=== PATIENT | female | born 1930 | race Caucasian/White ===

== ENCOUNTER 2019-09-05 22:41 | Inpatient (IN) ==
[2019-09-05] MEDS ORDERED: Pantoprazole 40 MG VIAL IVP ONE (22:51)
[2019-09-05] MEDS ORDERED: Ondansetron 4 MG/2 ML VIAL IVP ONE (22:51)
[2019-09-05] MEDS ORDERED: 0.9 % Sodium Chloride 1,000 ML IVC ONE (22:51)
[2019-09-05 23:19] LABS: Prothrombin Time 23.1 Seconds (9.4-12.1)
[2019-09-05 23:21] LABS: Activated Partial Thrombo Time 25.6 Seconds (26.0-36.0)
[2019-09-05 23:36] LABS: BUN/Creatinine Ratio 19 (6-26); Blood Urea Nitrogen 22 mg/dL (8-23); Calcium 7.5 mg/dL (8.6-10.3); Carbon Dioxide 12 mEq/L (23-29); Chloride 111 mEq/L (98-107); Glucose 137 mg/dL (70-105); Osmolality,Calculated 291 (280-300); Potassium 5.9 mEq/L (3.5-5.1); Sodium 138 mEq/L (136-145); eGFR For African Americans 52 (> 60); eGFR For Non-African Americans 43 (> 60)
[2019-09-05 23:40] LABS: Troponin I < 0.03 ng/mL (< 0.04)
[2019-09-05 23:55] LABS: Albumin 2.6 g/dL (3.5-5.7); Bilirubin,Direct 0.2 mg/dL (0.0-0.2); Bilirubin,Indirect 0.6 mg/dL (0.0-1.0); Bilirubin,Total 0.8 mg/dL (0.3-1.0); Globulin 2.7 g/dL (2.4-3.5); Total Protein 5.3 g/dL (6.4-8.9)
[2019-09-06 02:18] LABS: Immature Granulocytes % 0.5 % (0-4); Lymphocytes # 2.1 K/mcL (0.6-4.6); Lymphocytes % 25.7 %; Mean Corpuscular Hemoglobin 17.6 pg (28.0-33.3); Mean Corpuscular Volume 70.6 fL (83.0-100.0); Monocytes # 0.5 K/mcL (0.0-1.3); Monocytes % 6.5 %; Neutrophils # 5.6 K/mcL (1.6-8.9); Red Blood Count 2.04 M/mcL (3.82-4.97); Red Cell Distribution Width 20.1 % (11.5-14.5); Segmented Neutrophils % 67.3 %; White Blood Count 8.3 K/mcL (4.3-11.1)
[2019-09-06 02:22] LABS: Hemoglobin 3.6 g/dL (11.5-15.4)
[2019-09-06 02:23] LABS: Hematocrit 14.4 % (35.3-44.9); Platelet Count 86 K/mcL (140-400)
[2019-09-06 02:42] LABS: Anisocytosis 2+ (Not Present); Hypochromasia Present (Not Present)
[2019-09-06] MEDS ORDERED: Octreotide 50 MCG/ML INJ IVP ONE (02:42)
[2019-09-06] MEDS ORDERED: cefTRIAXone 2,000 MG in Water for inj. (sterile) 20 ML IVP ONE (02:42)
[2019-09-06 02:43] LABS: Ovalocytes 1+ (Not Present); Platelet Estimate Slight Decrease (Normal); Poikilocytosis 2+ (Not Present)
[2019-09-06] MEDS ORDERED: Calcium Gluconate 1gm/50mL 1 GM/50 ML BAG IVPB ONE (02:44)
[2019-09-06] MEDS ORDERED: 0.9 % Sodium Chloride 250 ML ONE ×2 (03:32→04:12)
[2019-09-06 03:55] LABS: D-Dimer 809 ng/mLFEU (0-500); Fibrinogen 80 mg/dL (169-393)
[2019-09-06] MEDS: Pantoprazole 40 MG in 0.9 % Sodium Chloride Mini Bag 100 ML IVC SCH ×5 (04:17→22:38)
[2019-09-06] MEDS: Octreotide 400 MCG in 0.9 % Sodium Chloride 100 ML IVC SCH ×2 (04:18→20:13)
[2019-09-06] MEDS ORDERED: Isovue-370 500 ML BOTTLE IVP ONE (04:19)
[2019-09-06] MEDS ORDERED: 0.9 % Sodium Chloride 250 ML IVC SCH (04:30)
[2019-09-06] MEDS ORDERED: 0.9 % Sodium Chloride 1,000 ML IVC ONE (04:46)
[2019-09-06] MEDS ORDERED: Naloxone 0.4 MG/ML INJ IVP PRN (06:17)
[2019-09-06] MEDS ORDERED: D5% in Water 1,000 ML IVC PRN (06:25)
[2019-09-06] MEDS ORDERED: Dextrose Gel 15 GM/37.5 ML TUBE PO PRN ×2 (06:25)
[2019-09-06] MEDS ORDERED: *HR* Dextrose 50 % in Water (Syg) 50 ML SYRINGE IVP PRN (06:25)
[2019-09-06 08:28] LABS: INR 1.9; Prothrombin Time 21.1 Seconds (9.4-12.1)
[2019-09-06 08:29] LABS: Hematocrit 16.2 % (35.3-44.9)
[2019-09-06] MEDS: Insulin LISPRO 300 UNITS/3 ML VIAL SQ SCH ×3 (08:36→18:17)
[2019-09-06 08:38] LABS: Hemoglobin 4.5 g/dL (11.5-15.4)
[2019-09-06] MEDS ORDERED: Calcium Chloride 1,000 MG in 0.9 % Sodium Chloride 100 ML IVPB ONE (08:41)
[2019-09-06] MEDS ORDERED: Albumin Human 5% 0 GM/0 ML IV.SOLN ONE (08:44)
[2019-09-06 08:45] LABS: Alanine Aminotransferase 26 Units/L (7-52); Albumin/Globulin Ratio 1.2 (1.1-2.2); Alkaline Phosphatase 45 Units/L (34-104); Aspartate Amino Transferase 55 Units/L (13-39); BUN/Creatinine Ratio 22 (6-26); Blood Urea Nitrogen 26 mg/dL (8-23); Carbon Dioxide 15 mEq/L (23-29); Chloride 110 mEq/L (98-107); Globulin 2.6 g/dL (2.4-3.5); Glucose 131 mg/dL (70-105); Magnesium 1.6 mg/dL (1.6-2.6); Osmolality,Calculated 297 (280-300); Phosphorous 3.6 mg/dL (2.7-4.5); Potassium 5.4 mEq/L (3.5-5.1); Sodium 140 mEq/L (136-145); Total Protein 5.6 g/dL (6.4-8.9); eGFR For African Americans 53 (> 60); eGFR For Non-African Americans 44 (> 60)
[2019-09-06 08:52] LABS: Troponin I < 0.03 ng/mL (< 0.04)
[2019-09-06] MEDS ORDERED: Lacri-Lube 3.5 GM TUBE ONE (09:29)
[2019-09-06] MEDS ORDERED: Lidocaine -MPF 4% 5 ML AMPUL ONE (09:50)
[2019-09-06] MEDS ORDERED: *HR* Etomidate 40 MG/20 ML VIAL IVP ONE (09:50)
[2019-09-06] MEDS ORDERED: *HR* Succinylcholine 200 MG/10 ML VIAL IVP ONE (09:50)
[2019-09-06] MEDS ORDERED: Furosemide 40 MG TABLET PO SCH (10:45)
[2019-09-06] MEDS: Albumin 25% 25gram/100mL 25 GM/100 ML IV.SOLN IVPB SCH ×3 (11:10→17:09)
[2019-09-06] MEDS ORDERED: Furosemide 20 MG/2 ML VIAL IVP ONE (12:13)
[2019-09-06 13:25] LABS: Hematocrit 21.7 % (35.3-44.9)
[2019-09-06 13:26] LABS: Hemoglobin 6.4 g/dL (11.5-15.4)
[2019-09-06 13:32] LABS: INR 1.8; Prothrombin Time 20.9 Seconds (9.4-12.1)
[2019-09-06 13:34] LABS: Activated Partial Thrombo Time 29.2 Seconds (26.0-36.0)
[2019-09-06 13:55] LABS: Hepatitis B Surface Antigen Nonreactive (Nonreactive)
[2019-09-06 14:22] LABS: Hepatitis C Virus Antibody Nonreactive (Nonreactive)
[2019-09-06 14:24] LABS: Hepatitis B Core IgM Nonreactive (Nonreactive)
[2019-09-06 14:26] LABS: Hepatitis A Antibody IgM Nonreactive (Nonreactive)
[2019-09-06] MEDS ORDERED: Chloraseptic Spray 177 ML BOTTLE MM PRN (14:39)
[2019-09-06] MEDS: Ondansetron 4 MG/2 ML VIAL IVP SCH ×2 (16:46→23:17)
[2019-09-06 17:25] LABS: Eosinophils % 0.3 %; Hematocrit 18.1 % (35.3-44.9); Immature Granulocytes % 0.3 % (0-4); Immature Platelets 6.3 % (1.1-6.1); Lymphocytes # 0.5 K/mcL (0.6-4.6); Lymphocytes % 15.2 %; Mean Corpuscular HGB Conc 29.8 g/dL (31.6-35.5); Mean Corpuscular Hemoglobin 22.5 pg (28.0-33.3); Mean Corpuscular Volume 75.4 fL (83.0-100.0); Mean Platelet Volume 10.4 fL (9.4-12.4); Monocytes # 0.1 K/mcL (0.0-1.3); Monocytes % 2.8 %; Neutrophils # 2.6 K/mcL (1.6-8.9); Nucleated Red Blood Cells 0.9 /100 WBC (0); Red Cell Distribution Width 19.5 % (11.5-14.5); Segmented Neutrophils % 81.4 %; White Blood Count 3.2 K/mcL (4.3-11.1)
[2019-09-06 17:28] LABS: Platelet Count 45 K/mcL (140-400)
[2019-09-06 17:33] LABS: Hemoglobin 5.4 g/dL (11.5-15.4)
[2019-09-06 17:57] LABS: Hypochromasia Present (Not Present); Platelet Estimate Decreased (Normal)
[2019-09-06 17:58] LABS: Anisocytosis 1+ (Not Present); Microcytosis Present (Not Present)
[2019-09-06] MEDS ORDERED: Acetaminophen 325 MG TABLET PO PRN (18:42)
[2019-09-06 22:15] LABS: Calcium 9.1 mg/dL (8.6-10.3); Magnesium 1.5 mg/dL (1.6-2.6)
[2019-09-06 22:26] LABS: Troponin I 0.2 ng/mL (< 0.04)
[2019-09-06 23:53] LABS: Basophils % 0.3 %; Immature Granulocytes % 0.5 % (0-4); Monocytes % 2.8 %
[2019-09-06 23:55] LABS: Hematocrit 24.8 % (35.3-44.9); Hemoglobin 7.7 g/dL (11.5-15.4); Immature Platelets 7.3 % (1.1-6.1); Lymphocytes # 0.4 K/mcL (0.6-4.6); Lymphocytes % 9.8 %; Mean Corpuscular Hemoglobin 24.6 pg (28.0-33.3); Mean Corpuscular Volume 79.2 fL (83.0-100.0); Monocytes # 0.1 K/mcL (0.0-1.3); Neutrophils # 3.4 K/mcL (1.6-8.9); Nucleated Red Blood Cells 0.5 /100 WBC (0); Platelet Count 39 K/mcL (140-400); Red Blood Count 3.13 M/mcL (3.82-4.97); Red Cell Distribution Width 20.1 % (11.5-14.5); Segmented Neutrophils % 86.6 %; White Blood Count 3.9 K/mcL (4.3-11.1)
[2019-09-07 00:52] LABS: VBG Ionized Calcium 1.18 mmol/L (1.15-1.35)
[2019-09-07 00:56] LABS: INR 1.8
[2019-09-07 00:57] LABS: Hemoglobin 7.9 g/dL (11.5-15.4)
[2019-09-07 00:59] LABS: Activated Partial Thrombo Time 27.7 Seconds (26.0-36.0); Hematocrit 25.8 % (35.3-44.9)
[2019-09-07] MEDS: Insulin LISPRO 300 UNITS/3 ML VIAL SQ SCH ×5 (01:16→20:30)
[2019-09-07] MEDS: Pantoprazole 40 MG in 0.9 % Sodium Chloride Mini Bag 100 ML IVC SCH ×4 (03:55→20:33)
[2019-09-07] MEDS ORDERED: cefTRIAXone 2,000 MG in Water for inj. (sterile) 20 ML IVP SCH (04:00)
[2019-09-07 05:42] LABS: Lymphocytes % 15.7 %
[2019-09-07 05:44] LABS: Immature Platelets 7.6 % (1.1-6.1)
[2019-09-07 05:47] LABS: Basophils % 0.3 %; Hematocrit 28.3 % (35.3-44.9); Hemoglobin 8.9 g/dL (11.5-15.4); Immature Granulocytes % 0.3 % (0-4); Lymphocytes # 0.6 K/mcL (0.6-4.6); Mean Corpuscular HGB Conc 31.4 g/dL (31.6-35.5); Mean Corpuscular Hemoglobin 25.2 pg (28.0-33.3); Mean Corpuscular Volume 80.2 fL (83.0-100.0); Monocytes # 0.2 K/mcL (0.0-1.3); Monocytes % 5.7 %; Nucleated Red Blood Cells 0.5 /100 WBC (0); Platelet Count 34 K/mcL (140-400); Red Blood Count 3.53 M/mcL (3.82-4.97); Red Cell Distribution Width 19.8 % (11.5-14.5); White Blood Count 3.9 K/mcL (4.3-11.1)
[2019-09-07] MEDS ORDERED: Furosemide 20 MG/2 ML VIAL IVP ONE (06:58)
[2019-09-07 07:12] LABS: Albumin 3.6 g/dL (3.5-5.7); Albumin/Globulin Ratio 1.7 (1.1-2.2); Calcium 8.8 mg/dL (8.6-10.3); Globulin 2.1 g/dL (2.4-3.5); Magnesium 1.9 mg/dL (1.6-2.6); Phosphorous 3.5 mg/dL (2.7-4.5); Potassium 4.7 mEq/L (3.5-5.1); Total Protein 5.7 g/dL (6.4-8.9)
[2019-09-07] MEDS: Ondansetron 4 MG/2 ML VIAL IVP SCH ×2 (07:24→17:24)
[2019-09-07] MEDS: Octreotide 400 MCG in 0.9 % Sodium Chloride 100 ML IVC SCH ×2 (11:50→14:19)
[2019-09-07] MEDS ORDERED: Chloraseptic Spray 177 ML BOTTLE MM PRN (13:34)
[2019-09-07] MEDS ORDERED: Naloxone 0.4 MG/ML INJ IVP PRN (13:34)
[2019-09-07] MEDS ORDERED: D5% in Water 1,000 ML IVC PRN (13:34)
[2019-09-07] MEDS ORDERED: Dextrose Gel 15 GM/37.5 ML TUBE PO PRN ×2 (13:34)
[2019-09-07] MEDS ORDERED: *HR* Dextrose 50 % in Water (Syg) 50 ML SYRINGE IVP PRN (13:34)
[2019-09-07] MEDS ORDERED: Acetaminophen 325 MG TABLET PO PRN (13:34)
[2019-09-07 17:27] LABS: Hematocrit 27.5 % (35.3-44.9); Hemoglobin 8.6 g/dL (11.5-15.4); Mean Corpuscular Volume 79.9 fL (83.0-100.0); Red Blood Count 3.44 M/mcL (3.82-4.97); White Blood Count 3.4 K/mcL (4.3-11.1)
[2019-09-07 17:28] LABS: Basophils % 0.3 %; Eosinophils % 0.6 %; Lymphocytes # 0.7 K/mcL (0.6-4.6); Lymphocytes % 20.1 %; Mean Corpuscular HGB Conc 31.3 g/dL (31.6-35.5); Monocytes # 0.3 K/mcL (0.0-1.3); Monocytes % 9.6 %; Neutrophils # 2.4 K/mcL (1.6-8.9); Platelet Count 50 K/mcL (140-400); Red Cell Distribution Width 20.1 % (11.5-14.5); Segmented Neutrophils % 69.1 %
[2019-09-07 17:29] LABS: Immature Granulocytes % 0.3 % (0-4)
[2019-09-07 17:31] LABS: Anisocytosis 2+ (Not Present); Hypochromasia Present (Not Present); Large Platelets Present (Not Present); Microcytosis Present (Not Present); Platelet Estimate Decreased (Normal); Poikilocytosis 1+ (Not Present)
[2019-09-08] MEDS: Ondansetron 4 MG/2 ML VIAL IVP SCH ×4 (00:25→23:28)
[2019-09-08] MEDS: Pantoprazole 40 MG in 0.9 % Sodium Chloride Mini Bag 100 ML IVC SCH ×5 (01:38→23:27)
[2019-09-08] MEDS: cefTRIAXone 2,000 MG in Water for inj. (sterile) 20 ML IVP SCH (04:20)
[2019-09-08 04:50] LABS: Basophils % 0.3 %; Immature Granulocytes % 0.3 % (0-4)
[2019-09-08 04:50] LABS: VBG Ionized Calcium 1.17 mmol/L (1.15-1.35)
[2019-09-08 04:51] LABS: Hematocrit 27.5 % (35.3-44.9); Hemoglobin 8.7 g/dL (11.5-15.4); Immature Platelets 7.5 % (1.1-6.1); Lymphocytes # 0.8 K/mcL (0.6-4.6); Mean Corpuscular HGB Conc 31.6 g/dL (31.6-35.5); Mean Corpuscular Hemoglobin 25.7 pg (28.0-33.3); Mean Corpuscular Volume 81.1 fL (83.0-100.0); Monocytes # 0.3 K/mcL (0.0-1.3); Monocytes % 10.6 %; Neutrophils # 1.9 K/mcL (1.6-8.9); Red Blood Count 3.39 M/mcL (3.82-4.97); Red Cell Distribution Width 20.6 % (11.5-14.5); Segmented Neutrophils % 61.8 %; White Blood Count 3.1 K/mcL (4.3-11.1)
[2019-09-08 04:53] LABS: INR 1.6; Prothrombin Time 17.9 Seconds (9.4-12.1)
[2019-09-08 04:56] LABS: Activated Partial Thrombo Time 26.4 Seconds (26.0-36.0)
[2019-09-08 05:09] LABS: Albumin 3.5 g/dL (3.5-5.7); Albumin/Globulin Ratio 1.5 (1.1-2.2); Bilirubin,Total 1.1 mg/dL (0.3-1.0); Calcium 8.7 mg/dL (8.6-10.3); Globulin 2.3 g/dL (2.4-3.5); Magnesium 1.7 mg/dL (1.6-2.6); Phosphorous 2.6 mg/dL (2.7-4.5); Potassium 3.8 mEq/L (3.5-5.1); Total Protein 5.8 g/dL (6.4-8.9)
[2019-09-08 05:25] LABS: Platelet Count 54 K/mcL (140-400)
[2019-09-08 05:46] LABS: Anisocytosis 1+ (Not Present); Hypochromasia Present (Not Present)
[2019-09-08 05:47] LABS: Microcytosis Present (Not Present); Platelet Estimate Decreased (Normal)
[2019-09-08] MEDS: Insulin LISPRO 300 UNITS/3 ML VIAL SQ SCH ×3 (07:47→16:31)
[2019-09-08] MEDS: Letrozole 2.5 MG TABLET PO SCH (07:48)
[2019-09-08] MEDS: Spironolactone 25 MG TABLET PO SCH (07:48)
[2019-09-08] MEDS: Furosemide 20 MG TABLET PO SCH (07:48)
[2019-09-08 08:12] LABS: F-Actin (sm muscle) Ab IgG 6 Units (0-19)
[2019-09-08 08:22] LABS: AFP Tumor Marker Non-Pregnant 3 ng/mL (0-9)
[2019-09-08] MEDS ORDERED: Albumin 25% 25gram/100mL 25 GM/100 ML IV.SOLN IVPB SCH (09:00)
[2019-09-08] MEDS ORDERED: Albumin 25% 25gram/100mL 25 GM/100 ML IV.SOLN IVPB ONE (10:20)
[2019-09-08 18:13] LABS: Basophils % 0.3 %; Eosinophils % 0.7 %; Hematocrit 29.7 % (35.3-44.9); Hemoglobin 9.2 g/dL (11.5-15.4); Immature Platelets 7.3 % (1.1-6.1); Lymphocytes # 0.8 K/mcL (0.6-4.6); Lymphocytes % 25.2 %; Mean Corpuscular Volume 80.7 fL (83.0-100.0); Monocytes # 0.4 K/mcL (0.0-1.3); Neutrophils # 1.9 K/mcL (1.6-8.9); Red Blood Count 3.68 M/mcL (3.82-4.97); Red Cell Distribution Width 20.5 % (11.5-14.5); Segmented Neutrophils % 61.8 %
[2019-09-08 18:21] LABS: Platelet Count 49 K/mcL (140-400)
[2019-09-08] MEDS: Octreotide 400 MCG in 0.9 % Sodium Chloride 100 ML IVC SCH (18:54)
[2019-09-09] MEDS: Insulin LISPRO 300 UNITS/3 ML VIAL SQ SCH ×4 (00:04→16:37)
[2019-09-09] MEDS: cefTRIAXone 2,000 MG in Water for inj. (sterile) 20 ML IVP SCH (03:31)
[2019-09-09 04:10] LABS: Basophils % 0.4 %; Immature Granulocytes % 0.4 % (0-4)
[2019-09-09 04:12] LABS: Eosinophils % 1.2 %; Hematocrit 28.9 % (35.3-44.9); Hemoglobin 8.8 g/dL (11.5-15.4); Immature Platelets 7.5 % (1.1-6.1); Lymphocytes # 0.7 K/mcL (0.6-4.6); Lymphocytes % 29.5 %; Mean Corpuscular HGB Conc 30.4 g/dL (31.6-35.5); Mean Corpuscular Hemoglobin 24.8 pg (28.0-33.3); Mean Corpuscular Volume 81.4 fL (83.0-100.0); Monocytes % 10.2 %; Neutrophils # 1.4 K/mcL (1.6-8.9); Red Blood Count 3.55 M/mcL (3.82-4.97); Red Cell Distribution Width 20.6 % (11.5-14.5); Segmented Neutrophils % 58.3 %; White Blood Count 2.4 K/mcL (4.3-11.1)
[2019-09-09 04:17] LABS: Monocytes # 0.2 K/mcL (0.0-1.3); Platelet Count 50 K/mcL (140-400)
[2019-09-09 04:18] LABS: Calcium 8.5 mg/dL (8.6-10.3); Magnesium 1.5 mg/dL (1.6-2.6); Phosphorous 2.9 mg/dL (2.7-4.5); Potassium 3.5 mEq/L (3.5-5.1)
[2019-09-09] MEDS: Pantoprazole 40 MG in 0.9 % Sodium Chloride Mini Bag 100 ML IVC SCH ×2 (04:20→10:30)
[2019-09-09 06:49] LABS: ANA IgG by ELISA NONE DETECTED (None Detected); Serine Protease-3 Antibody 0 AU/mL (0-19)
[2019-09-09] MEDS ORDERED: Magnesium Sulfate 1 GM/102 ML PIGGYBACK IVPB ONE (07:35)
[2019-09-09] MEDS: Furosemide 20 MG TABLET PO SCH (08:21)
[2019-09-09] MEDS: Spironolactone 25 MG TABLET PO SCH (08:21)
[2019-09-09] MEDS: Ondansetron 4 MG/2 ML VIAL IVP SCH (08:21)
[2019-09-09] MEDS: Letrozole 2.5 MG TABLET PO SCH (08:21)
[2019-09-09] MEDS ORDERED: Albumin 25% 25gram/100mL 25 GM/100 ML IV.SOLN IVPB ONE (09:16)
[2019-09-09] MEDS ORDERED: Ondansetron 4 MG/2 ML VIAL IVP PRN (09:17)
[2019-09-09] MEDS: Octreotide 400 MCG in 0.9 % Sodium Chloride 100 ML IVC SCH (11:16)
[2019-09-09] MEDS: Pantoprazole 40 MG VIAL IVP SCH (16:37)
[2019-09-10] MEDS: Octreotide 400 MCG in 0.9 % Sodium Chloride 100 ML IVC SCH (03:07)
[2019-09-10] MEDS: cefTRIAXone 2,000 MG in Water for inj. (sterile) 20 ML IVP SCH (03:31)
[2019-09-10 03:39] LABS: Hemoglobin 8.4 g/dL (11.5-15.4); Immature Granulocytes % 0.5 % (0-4); Mean Corpuscular Hemoglobin 24.5 pg (28.0-33.3); Red Blood Count 3.43 M/mcL (3.82-4.97)
[2019-09-10 03:40] LABS: Basophils % 0.5 %
[2019-09-10 03:41] LABS: Eosinophils # 0.1 K/mcL (0.0-0.6); Eosinophils % 3.2 %; Hematocrit 28.3 % (35.3-44.9); Immature Platelets 8.2 % (1.1-6.1); Lymphocytes # 0.7 K/mcL (0.6-4.6); Mean Corpuscular HGB Conc 29.7 g/dL (31.6-35.5); Mean Corpuscular Volume 82.5 fL (83.0-100.0); Monocytes # 0.2 K/mcL (0.0-1.3); Monocytes % 9.5 %; Neutrophils # 0.9 K/mcL (1.6-8.9); Red Cell Distribution Width 21.1 % (11.5-14.5); Segmented Neutrophils % 49.3 %; White Blood Count 1.9 K/mcL (4.3-11.1)
[2019-09-10 03:47] LABS: Platelet Count 48 K/mcL (140-400)
[2019-09-10 03:59] LABS: BUN/Creatinine Ratio 28 (6-26); Blood Urea Nitrogen 28 mg/dL (8-23); Carbon Dioxide 28 mEq/L (23-29); Chloride 105 mEq/L (98-107); Potassium 3.4 mEq/L (3.5-5.1); Sodium 142 mEq/L (136-145); eGFR For African Americans > 60 (> 60)
[2019-09-10 04:00] LABS: Calcium 8.3 mg/dL (8.6-10.3); Glucose 145 mg/dL (70-105); Magnesium 1.6 mg/dL (1.6-2.6); Osmolality,Calculated 302 (280-300); Phosphorous 3.4 mg/dL (2.7-4.5); eGFR For Non-African Americans 52 (> 60)
[2019-09-10 04:49] LABS: Platelet Estimate Decreased (Normal)
[2019-09-10] MEDS: Pantoprazole 40 MG VIAL IVP SCH (06:02)
[2019-09-10] MEDS: Letrozole 2.5 MG TABLET PO SCH (08:52)
[2019-09-10] MEDS: Furosemide 20 MG TABLET PO SCH (08:52)
[2019-09-10] MEDS: Insulin LISPRO 300 UNITS/3 ML VIAL SQ SCH ×2 (08:52→12:40)
[2019-09-10] MEDS: Spironolactone 25 MG TABLET PO SCH (08:52)
[2019-09-10 11:20] VITALS: BP 165/68
== END 2019-09-10 13:24 | disposition home health service (06) | DRG 441 ==
LOC: EMEROOARM 22:41 → ICNU 22:41 → SUATTDRO 09-06 04:53 → ICNU 09-06 06:51 → 2NNU 09-07 16:12
PROVIDERS: ADMIT Internal Medicine; ATTEND Internal Medicine